=== PATIENT | male | born 1990 | race Caucasian/White ===

== ENCOUNTER 2019-03-08 12:25 | Emergency (ER) | payer BC ==
[~2019-03-08] VITALS: Ht 162.6 cm; Wt 70.4 kg
--- NOTE | 2019-03-08 13:56 | Diagnostic Imaging Report ---
Frontal and lateral views of the chest. HISTORY: Pole muscle, hit left side of chest COMPARISON: None available. DISCUSSION: Lungs: The lungs are well inflated. No evidence of a consolidative pneumonia or pulmonary alveolar edema. Pleura: No pleural effusion or pneumothorax. Heart and mediastinum: The cardiomediastinal silhouette appear(s) unremarkable. Bones and soft tissues: Appear unremarkable. IMPRESSION: No acute radiographic abnormality. Signed by: Dr. Levi Aguayo D.O., M.M.M. on 03/08/2019 1:53 PM
[2019-03-08 14:01] VITALS: BP 134/82
== END 2019-03-08 14:30 | disposition home or self-care (01) ==
LOC: FSED 12:25
DX: R07.89 Other chest pain (principal)
CPT/HCPCS: 71046; 93005; 99283